=== PATIENT | female | born 1990 | race Caucasian/White ===

== ENCOUNTER 2021-10-10 21:39 | Emergency (ER) | payer OTHER, SELFPAY ==
[2021-10-10 21:51] VITALS: BP 126/82; PULSE 72; O2SAT 96
--- NOTE | 2021-10-10 22:04 | PC.NURSE ---
pt no in waiting room at this time.
== END 2021-10-11 00:37 | disposition left against medical advice (07) ==
PROVIDERS: Emergency Provider Emergency Medicine
DX: R04.0 Epistaxis (principal)